=== PATIENT | female | born 1950 | race Caucasian/White ===

== ENCOUNTER 2024-10-10 10:33 | Outpatient (AMB) | payer MEDICARE, BC, SELFPAY ==
--- NOTE | 2024-10-10 10:43 | MHC.OFFVIS ---
Intake Visit Reasons: 6 Weeks Accompanied by: Daughter and son-in-law Allergies No Known Allergies Allergy (Verified 10/10/24 10:47) Medication List - Last Reconciled 10/10/24 by Nina Giron CNP levothyroxine 75 mcg PO QAM quetiapine 25 mg PO BEDTIME PRN sertraline 25 mg PO DAILY HPI Comments Details: 74-year-old RH woman with chronic mycobacterium avium infection, Alzheimer, and primary progressive aphasia. She was living with family who noted more decline in memory since 02/2024. She could be confused at times, even in familiar areas. She was here with family. She was having more trouble following directions. She could be agitated and aggressive at times, and occasionally physically aggressive. She was impatient, and did not like to wait at check-out lines in stores. Speech was clear, but often did not make any sense. She often cursed. She would rip up anything she could get her hands on, including paper, books, and even shades on the window. Her family had to put protective cover over light switches as she kept turning lights on and off. She was incontinent and using depends. She needed assistance with hygiene. She was able to feed herself, but was using hands more. She was able to dress herself if clothes were given to her. She was incontinent and using depends. She needed assistance with hygiene. Sleep was better with quetiapine and she was now sleeping through the night. Review of Systems Const Denies chills, Denies daytime sleepiness, Denies difficulty sleeping, Denies fatigue, Denies fever(s), Denies frequent falls, Denies headache(s), Denies increased appetite, Denies poor appetite, Denies snoring, Denies weakness, Denies weight gain and Denies weight loss Eyes Denies loss of vision ENT Denies vertigo, Denies dizziness and Denies headache(s) Card Denies chest pain at rest, Denies chest pain with activity, Denies syncope, Denies leg edema and Denies palpitations Resp Denies snoring GI Denies constipation, Denies heartburn, Denies diarrhea and Denies nausea Denies urinary frequency, Reports urinary incontinence and Denies urinary urgency Musc Denies abnormal gait, Denies numbness and Denies tingling Skin/Breast Denies dry skin and Denies rash Neuro Denies abnormal gait, Denies vertigo, Denies dizziness, Denies syncope, Denies frequent falls, Denies headache(s), Denies lack of coordination, Denies loss of vision, Reports memory loss, Denies numbness, Denies restless legs, Denies seizure-like activity, Denies tingling, Denies paresthesias, Denies tremor(s) and Denies weakness Psych Reports anxiety, Denies depression, Denies auditory hallucinations, Reports memory loss, Denies visual hallucinations and Denies suicidal ideation Endo Denies fatigue and Denies palpitations Physical Exam Const Other: General Appearance:? normal, in no acute distress. Skin:? no rashes, no significant birthmarks. Heart:? S1, S2 normal, no murmurs. Lungs:? clear anteriorly and posteriorly. Extremities:? no edema. Psych:? alert, restless, agitated Neuro Other: Mental Status:?She is alert and awake, with dec sp speech and fluency, mod word finding difficulty, did not know the year or month or her age. Pacing around office, restless, agitated. Uncooperative with exam. Cranial Nerves:?Pupils are equal, round and reactive to light. External occular muscles are intact. Visual valle are full. Face is symmetrical. Facial sensations are normal. Tongue is midline. Palate elevates symmetrically. Shoulder shrugging is normal. Hearing to bedside conversation is normal. Sensory Exam:?....? Coordination:?No ataxia,?no titubation.? Gait Exam: Within normal limits. Cerebellar Signs:?[id number] is okay. Extrapyramidal System:?No tremor, rigidity with normal facial expressions.? Pronator Drift:?Not present.? Involuntary Movements:?No tremors seen.? Speech:?As above.? Results Reviewed Results Reviewed: MRI brain WO at [place] in Mar 2021: mild MVD, mild atrophy Audiogram in 2020: mild high freq hearing loss Home PSG in 2020: WNL (reported by daughter). Assessment & Plan Assessment & Plan (1) Alzheimer disease: Code(s): G30.9 - Alzheimer's disease, unspecified; F02.80 - Dementia in other diseases classified elsewhere, unspecified severity, without behavioral disturbance, psychotic disturbance, mood disturbance, and anxiety Category: Medical Plan: Continue sertraline 25mg 1 tablet daily Increase quetiapine 25mg 1 tablet at bedtime and 1 tablet daily as needed (2) Primary progressive nonfluent aphasia: Code(s): G31.01 - Pick's disease; F02.80 - Dementia in other diseases classified elsewhere, unspecified severity, without behavioral disturbance, psychotic disturbance, mood disturbance, and anxiety Category: Medical Plan . Medications: New sertraline 25 mg PO DAILY 90 tabs 1RF 90 days quetiapine 25 mg orally 1 tablet at bedtime and 1 tablet daily as needed; 180 tabs 0RF 90 days Coding Level of Care Code Est Pt Level 4 (41184) Diagnoses Alzheimer disease G30.9; F02.80 Primary progressive nonfluent aphasia G31.01; F02.80
--- OUTSIDE RECORDS SUMMARY | 2024-10-10 11:10 | XMS_ITS ---
Author Name [facility] Organization Unknown Care Team Organization Name Specialty Phone Email Start Date End Da te [facility] Elin [facility] 11/10/2022 [facility] Candelaria Vaughan Primary [facility] 01/11/202210/04
--- OUTSIDE RECORDS SUMMARY | 2024-10-10 11:11 | XMS_ITS | Patient Health Record ---
Author Organization [facility] [place] Address [address] [place] [address] Care Team Providers Care Legislative Analyst Name Role Phone Geena Sheppard MD Primary Care Provider Porfirio Palomo Unavailable [phone] Allergies Allergen (clinical drug ingredient) Drug/Non Drug Allergy documented on EMR Reaction Allergy Type Onset Date Status amoxicillin Amoxicillin Unknown Drug Allergy Act arnol sulfamethoxazole / trimethoprim Bactrim Unknown Drug Allergy Active Reason For Referral No Information Medications Medication SIG (Take, Route, Frequency, Duration) Notes Start Date End Date Status rifAMPin 300 MG Oral; Duration: 70 Active Omeprazole 40 MG Oral; Duration: 30 Active Levothyroxine Sodium 75 MCG Oral; Duration: 90 Active Ethambutol HCl 400 MG Oral; Duration: 42 Active Ventolin HFA 108 (90 Base) MCG/ACT Inhalation; Duration: 29 Not-Taking Azithromycin 500 MG Oral; Duration: 28 Active Rifabutin 150 MG Oral; Duration: 4 Not-Taking Polyethylene Glycol 3350 - Oral; Duration: 30 Not-Taking PARoxetine HCl 20 MG Oral; Duration: 30 Not-Taking Metoprolol Succinate ER 25 MG Oral; Duration: 30 Not-Takin g Atorvastatin Calcium 20 MG Oral; Duration: 90 Not-Taking Incruse Ellipta 62.5 MCG/INH Inhalation; Duration: 30 Not-Taking Erythromycin 5 MG/GM Ophthalmic; Duratio n: 7 Not-Taking Social History Tobacco Use: Social History Observation Description Date Details (start date - stop date) Former Smoker NA - NA Tobacco Use/Smoking Question Answer Notes Are you a: former smoker When did you stop smoking? 1 year ago Alcohol Screen Question Answer Notes Did you have a drink containing alcohol in the p ast year? No Points 0 Interpretation Negative Tobacco use other than smoking: Question Answer Notes Are you an other tobacco user? No Plan Of Treatment No Information Insurance Providers Payer Name Payer Address Payer Phone Subscriber Number Group Number Insured Name Patient Relationship to Insured Coverage Start Date Coverage End Date [employer] [address] [place] [address] [id number] Jacey Beckman Self - patient is the insured Med [facility] [address] [place] [address] [id number] Jacey Beckman Self - patient is the insured Medical (General) History Medical History History ICD Code Cholesterol Osteoporosis Thyroid disorder Measles Chicken pox Vascular grafts Vericose Veins Surgical History Surgery Date(Month/Year) lung surgery 07/08/2017
--- OUTSIDE RECORDS SUMMARY | 2024-10-10 11:11 | XMS_ITS | Clinical Summary ---
Author Organization [address] Address [address] [place] [phone] Phone Care Team Providers Care Limousine Driver Name Role Phone Elin Taylor MD Primary Care Provider [phone] Allergies Active Allergy Reactions Criticality Noted Date Comments Carbamazepine Swelling 06/27/2006 Penicillin V Potassium 03/03/2005 as child Penicillins 04/28/2021 Promethazine Hcl 03/03/2005 seizures Rifampin 10/26/2021 Sulfa Dyne 04/28/2021 Sulfa Drugs Sulfacetamide Sodium Diarrhea 03/03/2005 Medications ascorbic acid (VITAMIN C) 500 mg tablet Take 1 tablet (500 mg total) by mouth 1 (one) time each day. Active CYANOCOBALAMIN, VITAMIN B-12, ORAL Take by mouth 1 (one) time each day. Active cholecalciferol (VITAMIN D-3) 50 mcg (2,000 unit) capsule Take 1 capsule (2,000 Units total) by mouth. 01/19/2022 Active levothyroxine (SYNTHROID, LEVOTHROID) 75 mcg tablet TAKE 1 TABLET BY MOUTH EVERY MORNING (BEFORE BREAKFAST). 90 tablet 1 04/17/2024 Active Active Problems Problem Noted Date Diagnosed Date Medical orders for life-sust aining treatment (MOLST) form in chart 06/06/2024 Overview (06/06/2024): Ok for CPR, no intubation or life support machine Pacemaker 07/27/2022 Overview (01/19/2024): Placed for third degree heart block Third degree heart block ([facility] V24, [facility] V 28) 05/31/2022 B12 deficiency 08/19/2021 Alzheimer disease ([facility] V24, [facility] V28) 01/2022 Overview (12/21/2023): Dr. Solis Cerebral microvascular disease 07/14/2021 COVID-19 virus infection 03/12/2021 Overview (12/21/2023): 10/24 Osteoporosis 03/12/2021 Overview (12/21/2023): 02/23 T score spine -2.9 hip -2.8 Snoring 01/11/2021 Overview (12/21/2023): 12/2020 Home Sleep Study did not reveal sleep apnea or nocturnal hypoxia. Mycobacterium avium infection ([facility] V24, [facility] V28) 08/27/2018 Generalized anxiety disorder 11/09/2016 Chronic obstructive pulmonar y disease ([facility] V24, [facility] V28) 06/23/2016 Incidental lung nodule, > 3mm and < 8mm 06/24/19 17 Hyperlipidemia 02/16/2010 Sciatica 01/17/2007 Esophageal reflux 02/02/2006 Hypothyroidism 03/03/2005 Resolved Problems Problem Noted Date Diagnosed Date Resolved Date Radiculitis 03/30/2007 05/29/2024 Overview (05/29/2024): Thoracic or lumbosacral neuritis or radiculitis, unspecified Pain in joint 05/25/2005 06/06/2024 Encounters Date Type Department Care Team Description 09/14/2024 4:15 AM EDT Ancillary Procedure [facility] [address] [place] [address] from Last 3 Months Immunizations Name Administration Dates Next Due Influenza Quadravalent, 0.5m l (Fluzone High-dose) 65yo and older 12/26/2019 Influenza trivalent, 0.5mL ( Fluad) 65yo and older 01/27/2023,01/19/2022,03/12/2021,12/25,01/08/2019,12/01/2017,12/09/2016 Influenza trivalent, 0.5mL ( Fluzone High-dose) 65yo and older 01/27/2023,01/19/2022,03/12/2021,01/08,12/21/2018,12/01/2017,12/09/2016 Influenza trivalent, 0.5mL, preservative free (Fluarix; FluLaval; Fluzone) ages 6mo and older (Afluria) 3 years and older 02/04/2016,12/16/2014,12/12/2013,12/14,12/08/2011,11/18/2010,12/09/2009 ,12/31/2007 Influenza trivalent, with pr eservative (Fluzone; Afluria) 6mo and older 02/04/2016,12/16/2014,12/12/2013,12/14,12/08/2011,11/18/2010,12/09/2009 ,12/31/2007 PPD Test 05/26/2001,05/23/2001 Pneumococcal conjugate 13 va lent (Prevnar 13, PCV13) 2mo and older 04/15/2015 Pneumococcal polysaccharide 23 valent (Pneumovax 23) 2yo and older 12/17/2013,12/10/2008 Td Tetanus diptheria (Tdvax) 7yo and older 07/27/2022,01/30/2004 Td, Unspecified 01/30/2004 Tdap Tetanus diptheria acell ular pertussis (Boostrix; Adacel) 7yo and older 03/27/2012 Zoster Live 12/29/2015 Surgical History Surgery Date Site/Laterality Comments OTHER SURGICAL HISTORY 1992 stripped vein stripping: left leg HYSTERECTOMY COLONOSCOPY 12/02/03 good for 10yrs. ESOPHAGOGASTRODUODENOSCOPY 03/26/09 normal OTHER SURGICAL HISTORY 07/06/2017 Left lung wedge resection, Dr Hernandez, benign, not cancer, Mycobacterium avium. Hemothorax post op. SCREENING MAMMOGRAM 02/16/2021 Bilateral TONSILLECTOMY Medical History Medical History Date Comments Historical Medical DX 1993 : left leg DVT after veins stripped Esophageal reflux 02/02/2006 Chronic obstructive pulmonar y disease (CMS/HCC V24, CMS/HCC V28) 06/23/2016 COVID-19 virus infection 03/12/202110/24 Osteoporosis 03/12/202102/23 T score sp ine -2.9 hip -2.8 B12 deficiency 08/19/2021 Pacemaker 07/27/2022 Placed for third degree heart block Family History Medical History Relation Name Comments Breast cancer Aunt ma Hyperlipidemia Brother Alcohol abuse Father Macular degeneration Maternal Grandfather Breast cancer Maternal Grandmother Melanoma Mother diabetes Breast cancer Mother's side 1st cousin Breast cancer Other niece at 40 No Known Problems Paternal Grandfather No Known Problems Paternal Grandmother Hyperlipidemia Sister Blindness Neg Hx Glaucoma Neg Hx Strabismus Neg Hx Relation Name Status Comments Aunt ma Brother Alive Father Maternal Grandfather Maternal Grandmother Mother (Age 87) Mother's side Other Alive Paternal Grandfather Paternal Grandmother Sister Alive Social History Tobacco Use Types Packs/Day Years Used Date Smoking Tobacco: Former Cigarettes Q uit: 03/05/1970 Smokeless Tobacco: Former Quit: 03/06/1969 Tobacco Cessation:Counseling Given: Not Answered Alcohol Use Standard Drinks/Week Comments No 0 (1 standard drink = 0.6 oz pur e alcohol) Housing Instability Answer Date Recorde d Are you worried that in the next 2 months you may not have stable housing? No 06/03/2024 Food Access & Nutrition Answer Date Rec orded Do you have access to a vari ety of food including fruits and vegetables? No 06/03/2024 Health Literacy Answer Date Recorded How often do you need to hav e someone help you when you read instructions, pamphlets, or other written material from your doctor or pharmacy? Always 06/03/2024 Caregiver: How often do you need to have someone help you when you read instructions, pamphlets, or other written material from your doctor or pharmacy? Not on file 06/03/2024 Financial Risk Answer Date Recorded How hard is it for you to pa y for the very basics like food, housing, medical care, and air conditioning / heating? Not very hard 06/03/2024 Transportation Answer Date Recorded Has the lack of transportati on kept you from meetings, work, or from getting things needed for daily living? No Has the lack of transportati on kept you from medical appointments or from getting medications? No 06/03/2024 Food Risk Answer Date Recorded Within the past 12 months we worried whether our food would run out before we got money to buy more. Never true 06/03/2024 Within the past 12 months th e food we bought just didn't last and we didn't have money to get more. Never true 06/03/2024 Dependent Care Answer Date Recorded Do you need help finding or paying for care for your loved ones. For example, child attendant or elderly care for an older adult? No 06/03/2024 Education Answer Date Recorded Do you think completing more education or training, like finishing a GED, going to college, or learning a trade, would be helpful for you? No 06/03/2024 Employment and Income Answer Date Recor ded During the last four weeks, have you been actively looking for work? No 06/03/2024 Living Situation Answer Date Recorded What is your living situation? 0 06/03/2024 Comments Unknown Sex and Gender Information Value Date Recorded Sex Assigned at Not on file Legal Sex Female 5:35 PM EST Gender Identity Not on file Sexual Orientation Not on file Obstetrics History Last Filed Vital Signs Vital Sign Reading Time Taken Comments Blood Pressure 110/60 06/06/2024 8:42 AM EDT Pulse 88 06/06/2024 8:42 AM EDT Temperature 36.5 C (97.7 F) 06/06/2024 8:42 AM EDT Respiratory Rate 14 06/06/2024 8:42 AM EDT Oxygen Saturation 99% 06/06/2024 8:42 AM EDT Inhaled Oxygen Concentration - - Weight 45.5 kg (100 lb 4.8 oz) 06/06/2024 8:42 A M EDT Height 171.5 cm (5' 7.5 ) 06/06/2024 8:42 AM EDT Body Mass Index 15.48 06/06/2024 8:42 AM EDT Plan of Treatment Upcoming Encounters Date Type Department Care Team (Late st Contact Info) Description 12/06/2024 9:45 AM EDT Office Visit Adult Medicine [facility] [address] [place] [address] Candelaria Vaughan PA [address] [place] [address] 06/17/2025 10:00 AM EDT Ancillary Procedure [facility] [address] [facility] [address] [place] [phone] Health Maintenance Due Date Last Done Comments Zoster Vaccines (2 of 3) 02/23/2016 12/29/2015 Colorectal Cancer Screening: Stool Based Tests (FOBT/FIT) 02/12/2022 RSV Immunization Adult Patients (1 - 1-dose 75+ series) 07/06/2023 COVID-19 Vaccine ( season) 2023 Depression Screening 03/06/2024 10/04/2023 Falls Risk Assessment 10/03/2024 10/04/2023 Medicare Annual Wellness Visit 10/03/2024 10/04/2023 Influenza Vaccine (#1) 2024 , 01/27/2023, 01/19/2022, Additional history exists Social Influencers of Health Screening 06/03/2025 06/03/2024 Cholesterol Screening (Lipid Panel) 05/29/2028 05/30/2023 Osteoporosis Screening (Bone Density Screening) 02/16/2031 02/16/2021, 09/14/2018, 06/07/2016 DTaP,Tdap,and Td Vaccines (5 - Td or Tdap) 07/27/2032 07/27/2022, 03/27/2012, 01/30/2004, Additional history exists Hepatitis C Screening Completed 03/18/2014 Pneumococcal Vaccine: 50+ Years Completed 04/15/2015, 12/17/2013, 12/10/2008 Breast Cancer Screening Discontinued 02/17/20 21, 05/03/2019, 10/11/2017, Additional history exists Colorectal Cancer Screening: Colonoscopy Discontinued 10/04/2023 HIB Vaccines Aged Out No longer eligi ble based on patient's age to complete this topic HPV Vaccines Aged Out No longer eligi ble based on patient's age to complete this topic Hepatitis A Vaccines Aged Out No long er eligible based on patient's age to complete this topic Hepatitis B Vaccines Aged Out No long er eligible based on patient's age to complete this topic IPV Vaccines Aged Out No longer eligi ble based on patient's age to complete this topic MMR Vaccines Aged Out No longer eligi ble based on patient's age to complete this topic Meningococcal ACWY Vaccine Aged Out N o longer eligible based on patient's age to complete this topic Meningococcal B Vaccine Aged Out No l onger eligible based on patient's age to complete this topic RSV Immunization Patients Under 20 months Aged Out No longer eligible based on patient's age to complete this topic Varicella Vaccines Aged Out No longer eligible based on patient's age to complete this topic Medical Devices Implanted Type Area Sales Enablement Consultant Device Identifier Shelf Expiration Date Model / Serial / Lot Bsci-Crm [id number] Implanted: (Quantity not on file) Cardiac Pacemaker [employer] MGMT [id number] / [id number] / Procedures Procedure Name Priority Date/Time Associated Diagnosis Comments CARDIAC DEVICE CHECK- REMOTE- MURJ Routine 09/14/2024 4:10 AM EDT DEPRESSION SCREENING Routine 10/04/2023 FALLS RISK ASSESSMENT Routine 10/04/2023 COLONOSCOPY Routine 10/04/2023 LIPID PANEL Routine 05/30/2023 SCREENING MAMMOGRAPHY BI 2-VIEW BREAST INC CAD Routine 02/16/2021 4:35 PM EST Encounter for screening mammogram for malignant neoplasm of breast DXA BONE DENSITY STUDY 1+ SITS AXIAL SKEL Routine 02/16/2021 4:06 PM EST Age-related osteoporosis without current pathological fracture HEPATITIS C SCREENING Routine 03/18/2014 from Last 3 Months or Most Recently Relevant to Health Maintenance Results * Cardiac device check - Remote- MURJ (09/14/2024 4:10 AM EDT) Date Time Interrogation Session [id number] CV DEVICE CHECK Type Interrogation Session Remote Scheduled CV DEVICE CHECK Implantable Pulse Generator Sales Enablement Consultant BSX CV DEVICE CHECK Implantable Pulse Generator Type IPG CV DEVICE CHECK Implantable Pulse Generator Model L111 CV DEVICE CHECK Implantable Pulse Generator Serial Number [id number] CV DEVICE CHECK Implantable Pulse Generator Implant Date 20220603 CV DEVICE CHECK Battery Remaining Percentage 100.00 CV DEVICE CHECK Battery Remaining Longevity 72.0 CV DEVICE CHECK Battery Status Beginning of Service CV DEVICE CHECK Maldonado Statistic RA Percent Paced 17.00 CV DEVICE CHECK Maldonado Statistic RV Percent Paced 98.00 CV DEVICE CHECK Atrial Tachy Statistic AT/AF [place] Percent 0.00 CV DEVICE CHECK Lead Channel Sensing Intrinsic Amplitude 7.900 CV DEVICE CHECK Lead Channel Setting Sensing Sensitivity 0.25 CV DEVICE CHECK Lead Channel Impedance Value 566 CV DEVICE CHECK Lead Channel Pacing Threshold Amplitude 0.400 CV DEVICE CHECK Lead Channel Pacing Threshold Pulse Width 0.4 CV DEVICE CHECK Lead Channel RA Pacing Threshold Date 2024-09-09 CV DEVICE CHECK Lead Channel Setting Pacing Amplitude 2.000 CV DEVICE CHECK Lead Channel Setting Pacing Pulse Width 0.4 CV DEVICE CHECK Lead Channel Sensing Intrinsic Amplitude 8.600 CV DEVICE CHECK Lead Channel Setting Sensing Sensitivity 0.60 CV DEVICE CHECK Lead Channel Impedance Value 719 CV DEVICE CHECK Lead Channel Pacing Threshold Amplitude 0.500 CV DEVICE CHECK Lead Channel Pacing Threshold Pulse Width 0.4 CV DEVICE CHECK Lead Channel RV Pacing Threshold Date 2024-09-09 CV DEVICE CHECK Lead Channel Setting Pacing Amplitude 1.000 CV DEVICE CHECK Lead Channel Setting Pacing Pulse Width 0.4 CV DEVICE CHECK Maldonado Setting Mode (NBG Code) DDD CV DEVICE CHECK Maldonado Setting Lower Rate Limit 60 CV DEVICE CHECK Maldonado Setting AT Mode Switch Rate 170 CV DEVICE CHECK Maldonado Setting Maximum Tracking Rate 130 CV DEVICE CHECK Maldonado Setting PAV Delay 200 CV DEVICE CHECK Maldonado Setting KAYLAH Delay 180 CV DEVICE CHECK Zone Setting Type Category VT CV DEVICE CHECK Rate 160 CV DEVICE CHECK Zone Setting Status Monitor CV DEVICE CHECK Zone ID 1 CV DEVICE CHECK Date of Service 2024-09-21 CV DEVICE CHECK Anatomical Region Laterality Modality Device Interroga tion 09/11/2024 3:51 AM EDT Impressions 09/13/2024 3:53 PM EDT Normal Remote: No Events * Normal Device Function * Alerts or events: None * Battery: Battery is at 100%, 6.00 yrs * Sensing, impedance and thresholds reviewed * Programmed parameters reviewed * Presenting rhythm reviewed * Heart Rate Histograms reviewed * No significant changes noted Narrative Procedure Note Farzad Ortiz MD - 09/14/2024 IMPRESSION: Normal Remote: No Events * Normal Device Function * Alerts or events: None * Battery: Battery is at 100%, 6.00 yrs * Sensing, impedance and thresholds reviewed * Programmed parameters reviewed * Presenting rhythm reviewed * Heart Rate Histograms reviewed * No significant changes noted Result [facility] Farzad Ortiz MD CV IMPLANTABLE CARDIAC DEVICE PROCEDURES Final Result * Falls Risk Assessment (10/04/2023) [facility] Falls Risk Assessment Abstracted Result [facility] HEALTH MAINTENANCE Final Result * Depression Screening (10/04/2023) Pathologist [facility] Depression Screening Abstracted Result [facility] HEALTH MAINTENANCE Final Result * Colonoscopy (10/04/2023) [facility] Colonoscopy No Interpretation , Abstracted Comment:Refused Anatomical Region Laterality Modality Other Result [facility] Final Result * (ABNORMAL) Lipid panel (05/30/2023) [facility] LDL/HDL Ratio 3 0 - 4 Triglycerides 90 0 - 150 mg/dL Cholesterol 240(A) 0 - 200 mg/dL HDL 74 >=40 mg/dL LDL Cholesterol 148(A) 0 - 100 mg/dL Blood Venous blood specimen / Unknown Result [facility] Provider LAB BLOOD ORDERABLES Tegan l Result * SCREENING MAMMOGRAPHY BI 2-VIEW BREAST INC CAD (02/16/2021 4:35 PM EST) Anatomical Region Laterality Modality Radiographic Leola ging 11/17/2020 9:53 AM EDT Narrative 02/17/2021 3:19 PM EST This is a summary report. The complete report is available in the patient's medical record. If you cannot access the medical record, please contact the sending organization for a detailed fax or copy. Full field digital screening 2D and tomosynthesis mammography, reviewed with CAD and compared to previous. The breast tissue is dense, limiting sensitivity. No suspicious mass, architectural distortion or suspicious calcifications are identified. IMPRESSION: : Dense breast tissue, limiting the sensitivity of mammography. No mammographic evidence of malignancy. BIRADS 1-Negative; N. 5 year breast cancer risk assessment 1.4 % Lifetime breast cancer risk assessment 3.8 % Breast cancer risk category Low (<15%) Procedure Note Nhi Medrano MD - 02/22/2022 This is a summary report. The complete report is available in thepatient's medical record. If you cannot access the medical record, pleasecontact the sending organization for a detailed fax or copy. Full field digital screening 2D and tomosynthesis mammography, reviewedwith CAD and compared to previous. The breast tissue is dense, limitingsensitivity. No suspicious mass, architectural distortion or suspiciouscalcifications are identified. IMPRESSION: : Dense breast tissue, limiting the sensitivity of mammography. Nomammographic evidence of malignancy. BIRADS 1-Negative; N. 5 year breast cancer risk assessment 1.4 % Lifetime breast cancer risk assessment 3.8 % Breast cancer risk category Low (<15%) Candelaria CATALAN IMG XR PROCEDURES Final Resul t * DXA BONE DENSITY STUDY 1+ SITS AXIAL SKEL (02/16/2021 4:06 PM EST) Anatomical Region Laterality Modality Bone Densitometr y 11/17/2020 9:53 AM EDT Narrative 02/17/2021 6:10 PM EST BONE DENSITY Lumbar Spine T-score is -2.9 (SD relative to 20-29 y/o adult) Z-score is -0.6 (SD relative to age matched peers) This is consistent with osteoporosis by criteria defined by the WHO. Left Hip T-score is -2.8 Z-score is -0.9 This is consistent with osteoporosis by criteria defined by the WHO. Comparison exam(s): no statistically significant change in the bone density of the hip and lumbar spine when compared to most recent bone density examination Confidence level is +/-95%. Impression: Based on the World Health Organization criteria, Ilda Bedoya should be classified as having osteoporosis. The [facility] Department of Internal Medicine recommends using National Osteoporosis Foundation (NOF) guidelines in treatment decisions related to osteoporosis. NOF guidelines suggest considering treatment for postmenopausal women and men aged 50 or older presenting with the following: History of hip or vertebral fracture. T-score less than or equal to -2.5 (DXA) at the femoral neck, total hip, or spine, after appropriate evaluation to exclude secondary causes. Low bone mass (T-score between -1.0 and -2.5 at the femoral neck or spine) AND a 10-year probability of a hip fracture greater than or equal to 3% OR a 10-year probability of a major osteoporosis-related fracture greater than or equal to 20% based on the [place]-adapted WHO algorithm Please note that all treatment decisions require clinical judgment and consideration of individual patient factors, including patient preferences, co-morbidities, previous drug use, risk factors not captured in the FRAX model (e.g., frailty, falls, vitamin D deficiency, increased bone turnover, interval significant decline in bone density) and possible under- or over-estimation of fracture risk by FRAX. Procedure Note Nhi Medrano MD - 02/22/2022 BONE DENSITY Lumbar Spine T-score is -2.9 (SD relative to 20-29 y/o adult) Z-score is -0.6 (SD relative to age matched peers) This is consistent with osteoporosis by criteria defined by the WHO. Left Hip T-score is -2.8 Z-score is -0.9 This is consistent with osteoporosis by criteria defined by the WHO. Comparison exam(s): no statistically significant change in the bonedensity of the hip and lumbar spine when compared to most recent bonedensity examination Confidence level is +/-95%. Impression: Based on the World Health Organization criteria, Ilda Bedoya shouldbe classified as having osteoporosis. The [facility] Department of Internal Medicine recommendsusing National Osteoporosis Foundation (NOF) guidelines in treatmentdecisions related to osteoporosis. NOF guidelines suggest consideringtreatment for postmenopausal women and men aged 50 or older presentingwith the following: History of hip or vertebral fracture. T-score less than or equal to -2.5 (DXA) at the femoral neck, total hip,or spine, after appropriate evaluation to exclude secondary causes. Low bone mass (T-score between -1.0 and -2.5 at the femoral neck or spine)AND a 10-year probability of a hip fracture greater than or equal to 3% ORa 10-year probability of a major osteoporosis-related fracture greaterthan or equal to 20% based on the [place]-adapted WHO algorithm Please note that all treatment decisions require clinical judgment andconsideration of individual patient factors, including patientpreferences, co-morbidities, previous drug use, risk factors not capturedin the FRAX model (e.g., frailty, falls, vitamin D deficiency, increasedbone turnover, interval significant decline in bone density) and possibleunder- or over-estimation of fracture risk by FRAX. Candelaria CATALAN IMG DXA PROCEDURES Final Resu lt * Hepatitis C Screening (03/18/2014) [facility] Hepatitis C Screening Abstracted Historical Provider HEALTH MAINTENANCE Final Result from Last 3 Months or Most Recently Relevant to Health Maintenance Insurance MEDICARE [facility] Advance Directives Documents on File Type Date Recorded Patient Security Support Analyst Expl anation Advance Directives and Living Will 05/07/2024 11:54 AM Healthcare Proxy Health Care Decision (hx) 06/03/2022 HE [facility] CARE PROXY Care Teams Limousine Driver Relationship Specialty Start Date End Date Elin Taylor MD [address] [place] [address] PCP - General Internal Medicine 10/28/20
== END 2024-10-10 11:09 | disposition home or self-care (01) ==
LOC: HO.HSM 10:34
PROVIDERS: PCP Internal Medicine; Referring Provider Internal Medicine; Visit Provider Registered Nurse
DX: G30.9 Alzheimer's disease, unspecified (principal); F02.80 Dementia in other diseases classified elsewhere, unspecified severity, without behavioral disturbance, psychotic disturbance, mood disturbance, and anxiety; G31.01 Pick's disease
CPT/HCPCS: 99214

== ENCOUNTER → 2024-10-10 10:33 | Outpatient (BNVA) | payer MEDICARE, BC, SELFPAY | PROVIDERS: PCP Internal Medicine; Referring Provider Internal Medicine; Visit Provider Registered Nurse | DX: G31.01 Pick's disease (principal); F02.80 Dementia in other diseases classified elsewhere, unspecified severity, without behavioral disturbance, psychotic disturbance, mood disturbance, and anxiety; G30.9 Alzheimer's disease, unspecified | CPT/HCPCS: 99212 ==

== ENCOUNTER 2025-01-09 10:37 | Outpatient (AMB) | payer BC, MEDICARE, SELFPAY ==
--- NOTE | 2025-01-09 10:38 | A.OFFVIS_ITS ---
Intake Visit Reasons: 3m AD Accompanied by: Daughter Allergies No Known Allergies Allergy (Verified 01/09/25 12:39) Medication List - Last Reconciled 01/09/25 by Nina Giron CNP levothyroxine 75 mcg PO QAM quetiapine 25 mg orally 1 tablet at bedtime and 1 tablet daily as needed; 90 days sertraline 25 mg PO DAILY 90 days HPI Comments Details: 74-year-old RH woman with chronic mycobacterium avium infection, Alzheimer, and primary progressive aphasia. She was living with family who noted more decline in memory since 02/2024. She could be confused at times, even in familiar areas. Patient's daughter, Arpita, who is also her HCP, was here for appointment alone. It was too difficult to transport patient to office for this appointment. Patient was living with her daughter and being cared for at home by family. There was a period of about a week near the end of 12/2024 where family noted a decline in functioning. She was more tired, but easily arousable. Appetite was not so good and she needed to be fed. She went from walking to not standing. UA was ordered, but family was not able to get sample as she is incontinent. She has been incontinent of bowel and bladder since 02/2024. Her appetite was better and she was now back to feeding herself, mostly using her hands, as long as food was cut up for her. She was still not walking and required assistance with transfers from bed to chair. She appeared anxious and scared when she was being moved. She was taking quetiapine 12.5mg in the afternoon and 12.5mg before bed. Family noticed she was a bit agitated for about 30 minutes after taking medication, but this seemed to be less. Sometimes, she would cry and say baby when family was changing her. She was sleeping a lot during the day and was wake at night. Family could hear her babbling to herself at night. Review of Systems Const Denies chills, Denies daytime sleepiness, Denies difficulty sleeping, Denies fatigue, Denies fever(s), Denies frequent falls, Denies headache(s), Denies increased appetite, Denies poor appetite, Denies snoring, Denies weakness, Denies weight gain and Denies weight loss Eyes Denies loss of vision ENT Denies vertigo, Denies dizziness and Denies headache(s) Card Denies chest pain at rest, Denies chest pain with activity, Denies syncope, Denies leg edema and Denies palpitations Resp Denies snoring GI Denies constipation, Denies heartburn, Denies diarrhea and Denies nausea Denies urinary frequency, Reports urinary incontinence and Denies urinary urgency Musc Denies abnormal gait, Denies numbness and Denies tingling Skin/Breast Denies dry skin and Denies rash Neuro Denies abnormal gait, Denies vertigo, Denies dizziness, Denies syncope, Denies frequent falls, Denies headache(s), Denies lack of coordination, Denies loss of vision, Reports memory loss, Denies numbness, Denies restless legs, Denies seizure-like activity, Denies tingling, Denies paresthesias, Denies tremor(s) and Denies weakness Psych Reports anxiety, Denies depression, Denies auditory hallucinations, Reports memory loss, Denies visual hallucinations and Denies suicidal ideation Endo Denies fatigue and Denies palpitations Physical Exam Const Other: Unable to do as patient was not present. Results Reviewed Results Reviewed: MRI brain WO at [facility] in Mar 2021: mild MVD, mild atrophy Audiogram in 2020: mild high freq hearing loss Home PSG in 2020: WNL (reported by daughter). Assessment & Plan Assessment & Plan (1) Alzheimer disease: Code(s): G30.9 - Alzheimer's disease, unspecified; F02.80 - Dementia in other diseases classified elsewhere, unspecified severity, without behavioral disturbance, psychotic disturbance, mood disturbance, and anxiety Category: Medical Plan: Medication side effects reviewed. Discussed treatment options, including adjusting quetiapine dosing/timing of administration or trying alternative medication. HCP prefers to try adjusting quetiapine first. Increase sertraline 50mg 1 tablet daily. Continue quetiapine 25mg 1 tablet at bedtime and 1 tablet daily as needed. * Recommend quetiapine 25mg 1/2 tablet in the evening, may give additional 1/2 tablet as needed. (2) Primary progressive nonfluent aphasia: Code(s): G31.01 - Pick's disease; F02.80 - Dementia in other diseases classified elsewhere, unspecified severity, without behavioral disturbance, psychotic disturbance, mood disturbance, and anxiety Category: Medical Plan . Medications: New sertraline 50 mg PO DAILY 90 tabs 1RF 90 days Discontinued sertraline Discontinued Reason: Doctor's Order 25 mg PO DAILY 90 days 90 tabs 1RF Coding Level of Care Code Est Pt Level 4 (65601) Diagnoses Alzheimer disease G30.9; F02.80 Primary progressive nonfluent aphasia G31.01; F02.80
--- OUTSIDE RECORDS SUMMARY | 2025-01-09 12:42 | XMS_ITS | Clinical Summary ---
Author Organization [address] Address [address] [place] [phone] Phone Care Team Providers Care Gum Machine Operator Name Role Phone Elin Taylor MD Primary Care Provider [phone] Allergies Active Allergy Reactions Criticality Noted Date [...] Active levothyroxine (SYNTHROID, LEVOTHROID) 75 mcg tablet Take 1 tablet (75 mcg total) by mouth 1 (one) time each day. 90 each 3 12/09/2024 Active Active Problems Problem Noted Date Diagnosed Date DNR (do not resuscitate) 12/09/2024 Overview (12/09/2024): MOLST form completed 12/09/2024 Cardiopulmonary resuscitation - do not resuscitate Ventilation for a patient in respiratory distress - do not intubate or ventilate Transfer to hospital -transfer to hospital Dialysis - no dialysis Artificial nutrition - no artificial nutrition Artificial hydration - use artificial hydration Pacemaker 07/27/2022 Overview (01/19/2024): Placed for third degree heart block Third degree heart block ([facility] [place], [facility] V 28) 05/31/2022 B12 deficiency 08/19/2021 Alzheimer disease ([facility] V24, [facility] V28) 01/2022 Overview (12/21/2023): Dr. Solis Cerebral microvascular disease 07/14/2021 COVID-19 virus infection 03/12/2021 Overview (12/21/2023): 10/24 Osteoporosis 03/12/2021 Overview (12/21/2023): 02/23 T score spine -2.9 hip -2.8 Snoring 01/11/2021 Overview (12/21/2023): 12/2020 Home Sleep Study did not reveal sleep apnea or nocturnal hypoxia. Mycobacterium avium infection ([facility] V24, [facility] V28) 08/27/2018 Generalized anxiety disorder 11/09/2016 Chronic obstructive pulmonar y disease ([facility] V24, [facility] V28) 06/23/2016 Incidental lung nodule, > 3mm and < 8mm 06/24/19 17 Hyperlipidemia 02/16/2010 Sciatica 01/17/2007 Esophageal reflux 02/02/2006 Hypothyroidism 03/03/2005 Resolved Problems Problem Noted Date Diagnosed Date Resolved Date Medical orders for life-sust aining treatment (MOLST) form in chart 06/06/2024 12/09/2024 Overview (06/06/2024): Ok for CPR, no intubation or life support machine Radiculitis 03/30/2007 05/29/2024 Overview (05/29/2024): Thoracic or lumbosacral neuritis or radiculitis, unspecified Pain in joint 05/25/2005 06/06/2024 Encounters Date Type Department Care Team Description 12/13/2024 8:15 AM EDT Ancillary Procedure [facility] Cardiology [facility] [address] [facility] [address] [place] [address] 12/09/2024 2:30 PM EDT Office Visit Adult Medicine [address] [phone] Elin Taylor MD Alzheimer disease ([facility] V24, [facility] V28) (Primary Dx); Other hyperlipidemia; Acquired hypothyroidism; DNR (do not resuscitate); Third degree heart block ([facility] V24, [facility] V28) 11/19/2024 Telephone [facility] Cardiology [facility] [address] [facility] [address] [place] [address] Farzad Ortiz MD 10/12/2024 Telephone Adult Medicine [address] [phone] Candelaria Vaughan PA from Last 3 Months Immunizations Immunization Administration Dates Next Due Influenza Quadravalent, 0.5m [...] Neg Hx Relation Name Status Comments Aunt jacquelin Brother Alive Father Maternal Grandfather Maternal Grandmother [...] care for your loved ones. For example, children's program coordinator or elderly care for an older adult? [...] Date Recorded What is your living situation? Unrecognized valu e 06/03/2024 Comments Unknown Sex and Gender Information [...] Care Team (Late st Contact Info) Description 06/10/2025 11:00 AM EDT Office Visit Adult Medicine [facility] [address] [place] [address] Elin Taylor MD [address], [place] 06/17/2025 10:00 AM EDT Ancillary Procedure [facility] [address] [facility] [address] [place] [address] Health Maintenance Due Date Last Done Comments Zoster Vaccines (2 of 3) 02/23/2016 12/29/2015 Colorectal Cancer Screening: Stool Based Tests (FOBT/FIT) 02/12/2022 RSV Immunization Adult Patients (1 - 1-dose 75+ series) 07/06/2023 Depression Screening 03/06/2024 10/04/2023 Falls Risk Assessment 10/03/2024 10/04/2023 Medicare Annual Wellness Visit 10/03/2024 10/04/2023 COVID-19 Vaccine ( season) 2024 Influenza Vaccine (#1) 2024 , 01/27/2023, 01/19/2022, [...] 04/15/2015, 12/17/2013, 12/10/2008 Breast Cancer Screening Discontinued 02/17/20, 05/03/2019, 10/11/2017, Additional history exists Colorectal Cancer [...] this topic Medical Devices Implanted Type Area Can Reconditioner Device Identifier Shelf Expiration Date Model / Serial / Lot [id number] [id number] Implanted: (Quantity not on file) Cardiac Pacemaker [employer] C[employer]HY[employer] MGMT [id number] / [id number] / Procedures Procedure Name Priority Date/Time Associated Diagnosis Comments CARDIAC DEVICE CHECK- REMOTE- MURJ Routine 12/13/2024 8:10 AM EDT DEPRESSION SCREENING Routine 10/04/2023 FALLS [...] * Cardiac device check - Remote- MURJ (12/13/2024 8:10 AM EDT) Date Time Interrogation Session [id number] CV DEVICE CHECK Type Interrogation Session Remote Scheduled CV DEVICE CHECK Implantable Pulse Generator Can Reconditioner BSX CV DEVICE CHECK Implantable Pulse Generator Type IPG CV DEVICE CHECK Implantable Pulse Generator Model L111 CV DEVICE CHECK Implantable Pulse Generator Serial Number [id number] CV DEVICE CHECK Implantable Pulse Generator Implant Date 20220603 CV DEVICE CHECK Battery Remaining Percentage 100.00 CV DEVICE CHECK Battery Remaining Longevity 66.0 CV DEVICE CHECK Battery Status Beginning of Service CV DEVICE CHECK Maldonado Statistic RA Percent Paced 22.00 CV DEVICE CHECK Maldonado Statistic RV Percent Paced 98.00 CV DEVICE CHECK Atrial Tachy Statistic AT/AF [place] Percent 0.00 CV DEVICE CHECK Lead Channel Sensing Intrinsic Amplitude 5.900 CV DEVICE CHECK Lead Channel Setting Sensing Sensitivity 0.25 CV DEVICE CHECK Lead Channel Impedance Value 573 CV DEVICE CHECK Lead Channel Pacing Threshold Amplitude 1.800 CV DEVICE CHECK Lead Channel Pacing Threshold Pulse Width 0.4 CV DEVICE CHECK Lead Channel RA Pacing Threshold Date 2024-12-09 CV DEVICE CHECK Lead Channel Setting Pacing Amplitude 3.600 CV DEVICE CHECK Lead Channel Setting Pacing Pulse Width 0.4 CV DEVICE CHECK Lead Channel Sensing Intrinsic Amplitude 16.200 CV DEVICE CHECK Lead Channel Setting Sensing Sensitivity 0.60 CV DEVICE CHECK Lead Channel Impedance Value 686 CV DEVICE CHECK Lead Channel Pacing Threshold Amplitude 0.600 CV DEVICE CHECK Lead Channel Pacing Threshold Pulse Width 0.4 CV DEVICE CHECK Lead Channel RV Pacing Threshold Date 2024-12-09 CV DEVICE CHECK Lead Channel Setting Pacing Amplitude 1.100 CV DEVICE CHECK Lead Channel Setting Pacing [...] 1 CV DEVICE CHECK Date of Service 2024-12-21 CV DEVICE CHECK Anatomical Region Laterality Modality Device Interroga tion 12/11/2024 3:51 AM EDT Impressions 12/13/2024 7:51 AM EDT Normal Remote: No Events * Normal Device Function * Alerts or events: None * Battery: Battery is at 100%, 5.50 yrs * Sensing, impedance and thresholds reviewed * Programmed parameters reviewed * Presenting rhythm reviewed * Heart Rate Histograms reviewed * No significant changes noted Narrative Procedure Note Farzad Ortiz MD - 12/13/2024 IMPRESSION: Normal Remote: No Events * Normal Device Function * Alerts or events: None * Battery: Battery is at 100%, 5.50 yrs * Sensing, impedance and thresholds reviewed * Programmed parameters reviewed * Presenting rhythm reviewed * Heart Rate Histograms reviewed * No significant changes noted Farzad Ortiz MD CV IMPLANTABLE CARDIAC DEVICE PROCEDURES Final Result * Falls Risk Assessment (10/04/2023) Pathologist [facility] Falls Risk Assessment Abstracted [facility] Provider HEALTH MAINTENANCE Final Result * Depression Screening (10/04/2023) Pathologist [facility] Depression Screening Abstracted Result [facility] Final Result * Colonoscopy (10/04/2023) Pathologist [facility] Colonoscopy No Interpretation , Abstracted Comment:Refused Anatomical Region Laterality Modality Other Result [facility] Final Result * (ABNORMAL) Lipid panel (05/30/2023) [facility] LDL/HDL Ratio 3 0 - 4 Triglycerides 90 0 - 150 mg/dL Cholesterol 240(A) 0 - 200 mg/dL HDL 74 >=40 mg/dL LDL Cholesterol 148(A) 0 - 100 mg/dL Blood Venous blood specimen / Unknown Result [facility] LAB BLOOD ORDERABLES Tegan l Result * [...] % Breast cancer risk category Low (<15%) us Candelaria CATALAN IMG XR PROCEDURES Final Resul [...] should be classified as having osteoporosis. The [facility] Department of Internal Medicine recommends using National [...] Bedoya shouldbe classified as having osteoporosis. The [facility] Department of Internal Medicine recommendsusing National Osteoporosis [...] or over-estimation of fracture risk by FRAX. us Candelaria CATALAN IMG DXA PROCEDURES Final Resu lt * Hepatitis C Screening (03/18/2014) Pathologist [facility] Hepatitis C Screening Abstracted us Historical Provider HEALTH MAINTENANCE Final Result from Last 3 Months or Most Recently Relevant to Health Maintenance Insurance MEDICARE [facility] Advance Directives Documents on File Type Date Recorded Patient Supervisor Sunglasses Expl anation Advance Directives and Living Will 05/07/2024 11:54 AM Healthcare Proxy Health Care Decision (hx) 06/03/2022 HE ALTH CARE PROXY * No CPR/Do Not Intubate (Latest Code Status on File) Date Activated Date Inactivated Comments 12/09/2024 2:34 PM This code stat us was ascertained in the following way: Code status discussion: discussion with healthcare textiles sales representative To update the patient's code status, place a code status order. Do not modify or discontinue any currently active code status orders. Care Teams Gum Machine Operator Relationship Specialty Start Date End Date Elin Taylor MD [address] [place] [address] PCP - General Internal Medicine 10/28/20
--- OUTSIDE RECORDS SUMMARY | 2025-01-09 12:42 | XMS_ITS | Patient Health Record ---
Author Organization [facility] Address [address] [facility] [place] [address] Care Team Providers Care Railcar Switcher Name Role Phone Geena Sheppard MD Primary Care Provider Porfirio Paredes Unavailable [phone] Allergies Allergen (clinical drug ingredient) Drug/Non Drug [...] Inc [address] [place] [address] [id number] Jacey Beckman Self - patient is the insured [facility] [address] [place] [address] [id number] Jacey Beckman Self - patient is the insured Medical (General) History Medical History History ICD Code Cholesterol Osteoporosis Thyroid disorder Measles Chicken pox Vascular grafts Vericose Veins Surgical History Surgery Date(Month/Year) lung surgery 07/08/2017
== END 2025-01-09 11:08 | disposition home or self-care (01) ==
LOC: HO.HSM 10:38
PROVIDERS: PCP Internal Medicine; Visit Provider Registered Nurse
DX: G30.9 Alzheimer's disease, unspecified (principal); F02.80 Dementia in other diseases classified elsewhere, unspecified severity, without behavioral disturbance, psychotic disturbance, mood disturbance, and anxiety; G31.01 Pick's disease
CPT/HCPCS: 99214